=== PATIENT | male | born 1945 | race Caucasian/White ===

== ENCOUNTER → 2019-01-24 | Outpatient (CLI) | payer MEDICARE | END | disposition home or self-care (01) | LOC: RAH 11:20 | PROVIDERS: ATTEND Internal Medicine | DX: E04.1 Nontoxic single thyroid nodule (principal); E21.0 Primary hyperparathyroidism | CPT/HCPCS: 76536 ==

== ENCOUNTER → 2019-12-18 | Outpatient (CLI) | payer MEDICARE ==
[~2019-12-18] MED LIST: IOHEXOL 350 MG/ML 100ML INFUS..BTL IV ONE
== END | disposition home or self-care (01) ==
LOC: RAH 08:51
PROVIDERS: ATTEND Urology
DX: R59.1 Generalized enlarged lymph nodes (principal); K57.30 Diverticulosis of large intestine without perforation or abscess without bleeding; J98.11 Atelectasis; R31.29 Other microscopic hematuria; N40.0 Benign prostatic hyperplasia without lower urinary tract symptoms
CPT/HCPCS: 74178; Q9967

== ENCOUNTER 2021-09-22 06:40 | Observation (INO) | payer OTHER ==
[2021-09-16 13:00] LABS: BASOPHILS % (AUTO) 1.1 % (0.0-5.0); EOSINOPHILS % (AUTO) 9.6 % (0.0-8.0); HEMATOCRIT 51.6 % (42-54); LYMPHOCYTES % (AUTO) 13.9 % (21.0-51.0); MEAN CORPUSCULAR HEMOGLOBIN 32.3 pg (27.0-33.0); MEAN CORPUSCULAR HGB CONC 33.5 g/dL (32.0-36.0); MEAN CORPUSCULAR VOLUME 96.4 fL (79-99); MONOCYTES % (AUTO) 10.7 % (3.0-13.0); NEUTROPHILS % (AUTO) 64.2 % (40.0-77.0); PLATELET COUNT (AUTO) 150 K/uL (130-400); RED BLOOD CELL COUNT(AUTO) 5.35 MIL/uL (4.50-6.20); RED CELL DISTRIBUTION WIDTH 13.9 % (11.0-15.5); WHITE BLOOD COUNT (AUTO) 4.4 K/uL (4.8-10.8)
[2021-09-16 13:03] LABS: CREATININE 1.4 mg/dL (0.5-1.5); POTASSIUM 4.8 mmol/L (3.5-5.1)
[2021-09-16 13:20] LABS: APPEARANCE,URINE Cloudy (CLEAR); BILIRUBIN,URINE Negative (NEGATIVE); COLOR,URINE Yellow (YELLOW); GLUCOSE, URINE (UA) Negative (NEGATIVE); KETONES,URINE Negative (NEGATIVE); LEUKOCYTE ESTERASE ,URINE Negative (NEGATIVE); NITRATE,URINE Negative (NEGATIVE); OCCULT BLOOD,URINE Negative (NEGATIVE); PROTEIN,URINE Negative (NEGATIVE); UROBILINOGEN,URINE 0.2 mg/dL (0.2-1.0)
[2021-09-16 13:29] LABS: BACTERIA,URINE Few /HPF (None Seen); RBC,URINE None Seen /HPF (0-1); WBC,URINE 0-1 /HPF (0-1)
[2021-09-16 14:12] LABS: INR 0.98 (0.85-1.15); PROTHROMBIN TIME 10.7 SEC (9.6-11.6)
[2021-09-16 14:13] LABS: PARTIAL THROMBOPLASTIN TIME 28.4 SEC (26.3-35.5)
[2021-09-21 09:53] VITALS: BP 159/89
[2021-09-22] VITALS (35 sets, daily range): BP systolic 100–183; BP diastolic 66–101
[~2021-09-22] VITALS: Ht 175.3 cm; Wt 101.8 kg
[~2021-09-22 06:40] MED LIST changes: +GENTAMICIN 80 MG/NS 100 ML PB 100 ML IV SCH; -IOHEXOL 350 MG/ML 100ML INFUS..BTL IV ONE; +LEVO500T90 PO; +METH20TA PO; +TAMS-1 PO
[2021-09-22] MEDS ORDERED: LACTATED RINGERS 1000ML 1,000 ML IV ONE (07:29)
[2021-09-22] MEDS: CEFTRIAXONE 1G VIAL IVP SCH ×2 (08:00→11:06)
[2021-09-22] MEDS ORDERED: DEXAMETHASONE SOD PHOSPHATE 10MG/ML 1ML VIAL ONE (10:56)
[2021-09-22] MEDS ORDERED: SUCCINYLCHOLINE 200MG/10ML SYR ONE (10:56)
[2021-09-22] MEDS ORDERED: LIDOCAINE PF 100MG/5ML (2%) SYRINGE 5ML ONE ×2 (10:56→10:58)
[2021-09-22] MEDS ORDERED: GLYCOPYRROLATE 1 MG/5 ML SYRINGE ONE (10:57)
[2021-09-22] MEDS ORDERED: FENTANYL CITRATE PF 50 MCG/1 ML 2ML VIAL ONE (10:57)
[2021-09-22] MEDS ORDERED: NEOSTIGMINE 5MG/5ML SYR IV ONE (10:57)
[2021-09-22] MEDS ORDERED: ROCURONIUM 10MG/1ML SYR 10 MG/ML ML ONE (10:57)
[2021-09-22] MEDS ORDERED: PROPOFOL 10 MG/ML 20ML VIAL IV ONE (10:57)
[2021-09-22] MEDS ORDERED: ROCURONIUM BROMIDE 10MG/1ML 5ML VL ONE (11:43)
[2021-09-22] MEDS ORDERED: MEPERIDINE-PF 25 MG/ML SYG ONE ×2 (13:26→18:38)
[2021-09-22] MEDS ORDERED: HYDRALAZINE 20MG/ML VIAL ONE (13:40)
[2021-09-22] MEDS ORDERED: ONDANSETRON 4MG INJ ONE (13:48)
[2021-09-22] MEDS ORDERED: OPIUM/BELLADONNA ALKALOIDS 1 EACH SUPP.RECT RC ONE (14:14)
[2021-09-22] MEDS ORDERED: IPRATROPIUM/ALBUTEROL SULFATE 3 ML SOLUTION IH ONE (14:37)
[2021-09-22] MEDS ORDERED: KETOROLAC 30MG VIAL (30MG/ML) ONE (18:39)
[2021-09-23] VITALS: BP 106/55
[2021-09-23] MEDS ORDERED: TRAMADOL HCL 50 MG TABLET PO PRN
[2021-09-23 04:30] VITALS: BP 112/62
[2021-09-23 04:50] LABS: BASOPHILS % (AUTO) 0.3 % (0.0-5.0); EOSINOPHILS % (AUTO) 0.7 % (0.0-8.0); HEMATOCRIT 44.1 % (42-54); LYMPHOCYTES % (AUTO) 5.4 % (21.0-51.0); MEAN CORPUSCULAR HEMOGLOBIN 32.3 pg (27.0-33.0); MONOCYTES % (AUTO) 8.4 % (3.0-13.0); NEUTROPHILS % (AUTO) 84.7 % (40.0-77.0); PLATELET COUNT (AUTO) 114 K/uL (130-400); RED BLOOD CELL COUNT(AUTO) 4.64 MIL/uL (4.50-6.20); RED CELL DISTRIBUTION WIDTH 15.1 % (11.0-15.5); WHITE BLOOD COUNT (AUTO) 12.1 K/uL (4.8-10.8)
[2021-09-23 08:54] VITALS: BP 112/63
[2021-09-23] MEDS ORDERED: LEVOFLOXACIN 500 MG TABLET PO SCH (09:00)
[2021-09-23] MEDS ORDERED: BACITRACIN 28.4 GM OINT TP SCH ×2 (09:00→21:00)
[2021-09-23] MEDS ORDERED: METHYLPHENIDATE HCL 5 MG TABLET PO SCH (09:00)
[2021-09-23] MEDS ORDERED: DOCUSATE SODIUM 100 MG CAP PO SCH (09:00)
[2021-09-23] MEDS ORDERED: RENAL DOSE IV PRN (09:30)
[2021-09-23] MEDS ORDERED: PHARMACY COMMUNICATION MISC SCH (09:30)
[2021-09-23] MEDS ORDERED: AMPICILLIN 2GM+NS 100ML IV ONE (09:30)
[2021-09-23] MEDS ORDERED: AMOX1TAB16 PO (09:39)
[2021-09-23 09:42] LABS: CREATININE 1.4 mg/dL (0.5-1.5); POTASSIUM 4.4 mmol/L (3.5-5.1)
[2021-09-23] MEDS: AMPICILLIN 2GM+NS 100ML 100 ML IV SCH ×2 (11:09→18:00)
[2021-09-23] MEDS: 1/2 NS 1000ML 1,000 ML IV SCH ×3 (11:12→18:07)
[2021-09-23 11:44] VITALS: BP 124/66
[2021-09-23] MEDS ORDERED: AMPICILLIN 2GM VIAL IV SCH (12:00)
[2021-09-23] MEDS ORDERED: ALBUTEROL INHALER 90MCG/INH IH PRN (13:00)
[2021-09-23] MEDS ORDERED: FLUT1BLS IH (14:55)
[2021-09-23 16:48] VITALS: BP 131/76
== END 2021-09-23 20:03 | disposition home or self-care (01) ==
LOC: DAH 06:40 → 3DH 06:41
PROVIDERS: ADMIT Urology; ATTEND Urology
DX: N40.1 Benign prostatic hyperplasia with lower urinary tract symptoms (principal); Z20.822 Contact with and (suspected) exposure to COVID-19; R33.8 Other retention of urine; E66.9 Obesity, unspecified; J44.9 Chronic obstructive pulmonary disease, unspecified; M95.4 Acquired deformity of chest and rib; K59.00 Constipation, unspecified; N39.0 Urinary tract infection, site not specified; Z68.33 Body mass index [BMI] 33.0-33.9, adult; Z87.891 Personal history of nicotine dependence; Z48.816 Encounter for surgical aftercare following surgery on the genitourinary system; Z79.899 Other long term (current) drug therapy; Z98.890 Other specified postprocedural states
CPT/HCPCS: 36415 ×2; 52648; 71045 ×2; 80048 ×2; 81001; 85025 ×2; 85610; 85730; 87077; 87088; 87186; 87635; 93005; 94640; 94760 ×2; 96365; 96366; 96375; A4215; A4221; A4222; A4223; A4354; A4358; A4600; A4663; A6260; C1769; C9803; G0378 ×23; J0290 ×2; J0330; J0360; J0696; J1100; J1580; J1885; J2001 ×2; J2175 ×2; J2405; J2704; J2710; J3010; J3490 ×2; J7030; J7120 ×2

== ENCOUNTER → 2023-11-12 | Outpatient (CLI) | payer OTHER ==
[~2023-11-12] MED LIST changes: +AMOX1TAB16 PO; +FLUT1BLS IH; -GENTAMICIN 80 MG/NS 100 ML PB 100 ML IV SCH; -LEVO500T90 PO
== END | disposition home or self-care (01) ==
LOC: RAH 14:25
PROVIDERS: ATTEND Internal Medicine
DX: N20.0 Calculus of kidney (principal); K57.30 Diverticulosis of large intestine without perforation or abscess without bleeding; J44.9 Chronic obstructive pulmonary disease, unspecified; N28.1 Cyst of kidney, acquired; I25.10 Atherosclerotic heart disease of native coronary artery without angina pectoris; N40.0 Benign prostatic hyperplasia without lower urinary tract symptoms; M47.815 Spondylosis without myelopathy or radiculopathy, thoracolumbar region
CPT/HCPCS: 74176

== ENCOUNTER → 2024-10-28 | Outpatient (CLI) | payer OTHER ==
[~2024-10-28] MED LIST changes: -TAMS-1 PO; +TAMS-55 PO
--- NOTE | 2024-10-29 07:45 | HMCIMG ---
EXAMINATION: DUPLEX ULTRASOUND EXAMINATION OF THE BILATERAL LOWER EXTREMITY ARTERIES. CLINICAL HISTORY: PVD. COMPARISON: None. FINDINGS: Peak systolic velocities within the right lower arteries are as follows: Common femoral artery: 91 cm/s. Superficial femoral artery: 83 cm/s at proximal, 107 cm/s at mid, and 105 cm/s at distal segments. Popliteal artery: 79 cm/s at proximal and 60 cm/s at distal segments. Posterior tibial artery: 48 cm/s. Anterior tibial artery: 75 cm/s. Dorsalis pedis artery: 55 cm/s. The right lower limb arteries demonstrate triphasic to biphasic waveforms in all arteries. There are irregular waveforms. Peak systolic velocities within the left lower arteries are as follows: Common femoral artery: 88 cm/s. Superficial femoral artery: 77 cm/s at proximal, 57 cm/s at mid, and 61 cm/s at distal segments. Popliteal artery: 44 cm/s. Posterior tibial artery: 56 cm/s. Anterior tibial artery: 81 cm/s. Dorsalis pedis artery: 55 cm/s. The left lower limb arteries demonstrate biphasic waveforms in all arteries. There is intimal wall thickening in both the lower limb arteries. IMPRESSION: Mild intimal wall thickening in both the lower limb arteries. Both lower limb arteries demonstrate triphasic to biphasic waveforms. No flow limiting lesions. /[place]
== END | disposition home or self-care (01) ==
LOC: RAH 13:41
PROVIDERS: ATTEND Internal Medicine
DX: I73.9 Peripheral vascular disease, unspecified (principal); I77.89 Other specified disorders of arteries and arterioles
CPT/HCPCS: 93925